=== PATIENT | female | born 1960 | race African-American/Black ===

== ENCOUNTER → 2020-04-23 | Outpatient (CLI) | payer OTHER ==
[~2020-04-23] MED LIST: CYCLOBENZAPRINE10 MG PO; ELIQUIS5 MG PO; EPIDIOLEX100 MG/1 M PO; LISINOPRIL40 MG PO; NORVASC 2.5 MG2.5 M1 PO; OXYCODONE HCL 55 MG PO; TRAMADOL-ACETA1 EACH PO
[2020-04-23 10:36] LABS: ABSOLUTE EOSINOPHILS 0.2 thou/uL (0.0-0.7); ABSOLUTE LYMPHOCYTES 1.8 thou/uL (0.8-5.3); ABSOLUTE MONOCYTES 0.3 thou/uL (0.0-1.2); ABSOLUTE NEUTROPHILS 1.3 thou/uL (1.6-8.1); BASOPHILS 1.2 %; EOSINOPHILS 4.3 %; HEMATOCRIT 40.3 % (37.0-47.0); HEMOGLOBIN 13.9 gm/dL (12.0-15.0); LYMPHOCYTES 50.3 %; MCH 31.9 pg (26.0-34.0); MCHC 34.4 g/dL (28.0-37.0); MCV 92.7 fL (80.0-100.0); MONOCYTES 8.4 %; MPV 8.6 fl. (7.2-11.1); NUCLEATED RBCS 0 /100WBC; PLATELET COUNT* 210 thou/uL (150-400); POLYS 35.8 %; RBC 4.35 mil/uL (4.20-5.00); RDW-CV 14.6 % (10.5-14.5); WBC 3.6 thou/uL (4.0-11.0)
[2020-04-23 10:41] LABS: APTT 26.6 Seconds (25.0-31.3); PROTIME 10.3 Seconds (9.20-11.50)
[2020-04-23 10:52] LABS: ALBUMIN 3.9 g/dL (3.4-5.0); CALCIUM 8.5 mg/dL (8.5-10.1); CREATININE 1.1 mg/dL (0.6-1.3); POTASSIUM 3.9 mmol/L (3.5-5.1); TOTAL BILIRUBIN 0.4 mg/dL (<0.1-1.0); TOTAL PROTEIN 7.3 g/dL (6.4-8.2)
[2020-04-23 11:46] LABS: ESR (SEDRATE) 2 mm/hr (0-30)
[2020-04-24 03:06] LABS: GLYCOHEMOGLOBIN (HGB A1C) 6.1 % (4.8-5.6)
== END ==
LOC: M.LAB 09:55
PROVIDERS: ATTEND Orthopaedic Surgery
DX: Z01.818 Encounter for other preprocedural examination (principal); M17.12 Unilateral primary osteoarthritis, left knee; Z11.59 Encounter for screening for other viral diseases

== ENCOUNTER 2020-05-02 05:23 | Observation (INO) | payer OTHER ==
--- NOTE | 2020-04-18 12:44 | NUR ---
PATIENT INTERVIEWED ON TELEPHONE. STATES UNABLE TO COME TO JOINT REPLACEMENT CLASS. JOINT AND SPINE SURGERY GUIDE PROVIDED TO PATIENT AND INSTRUCTIONS GIVEN TO WATCH THE JOINT VIDEO ONLINE. PATIENT STATES SHE WILL DO SO. PHONE NUMBER GIVEN IF ANY QUESTIONS.
[~2020-05-02] VITALS: Ht 157.5 cm; Wt 74.8 kg
--- NOTE | ~2020-05-02 | OP ---
[address] [address] OPERATIVE REPORT Name: ANETA KEITH Room: [address] Darius#: [id number] Admission: 05/02/20 Attend Phys: Juanjo Selby Discharge: Date of : 56 Report #: [id number] THIS REPORT FOR: //name// cc: CATY FRANK MD Physician not on staff ~ THIS REPORT FOR: //name// CC: Physician staff CATY Ruvalcaba DATE OF SERVICE: 05/02/2020 PREOPERATIVE DIAGNOSIS: Advanced degenerative joint disease, left knee. POSTOPERATIVE DIAGNOSIS: Advanced degenerative joint disease, left knee. PROCEDURE PERFORMED: Left total knee arthroplasty using the MicroPort Evolution system with the following components: 1. Size 5 CR femoral component. 2. A size 5 tibial baseplate. 3. A size 12 mm CS femoral component. 4. A size 32 all-poly patella. 5. Two bags of Biomet bone cement. SURGEON: Eulogio Mcneil DO. CUSTOMER PROGRAM MANAGER: ____. ANESTHESIA: General with a peripheral nerve block by Anesthesia. SPECIMENS: None. COMPLICATIONS: None. DISPOSITION: Stable to PACU. ANTIBIOTICS: 2 grams IV Ancef preop. TOURNIQUET: 56 minutes at 300 mmHg. INDICATIONS: The patient is a 59-year-old female, who has been following in the clinic regarding left knee pain. Exam and imaging consistent with DJD. She continued to have pain despite conservative measures. This bothers her on daily basis and interfering with her ADLs. Therefore, I recommend she undergo [place] [address] OPERATIVE REPORT Name: ANETA KEITH Room: [address]#: [id number] Admission: 05/02/20 Attend Phys: Juanjo Selby Discharge: Date of : 56 Report #: [id number] OPERATIVE FINDINGS: Upon operative inspection of the left knee, she is found to have abnormal-appearing joint effusion with hypertrophic synovitis. There was loss of cartilage, eburnation of bone, and osteophytes present. DESCRIPTION OF PROCEDURE: The patient was seen in the preoperative area, where a consent was obtained. The operative site was marked. The patient was brought back to the operative suite and placed supine and well padded on the operating table. She was given the benefit of general anesthesia. A well-padded tourniquet was applied to the proximal thigh. Left lower extremity was prepped and draped in normal sterile fashion. Surgery began with a timeout, indicating correct site. Procedure was verified, all the OR personnel were in agreement. Procedure began with inflation of the tourniquet to 300 mmHg after gravity exsanguination. A standard midline incision was made. Sharp dissection down to the level of the capsule. New blade created a standard medial parapatellar arthrotomy. Medial capsular sleeve was created. Patella was everted. The anterior horn of the medial and lateral menisci were incised. The fat pad was removed. The drill was used to localize the femoral canal. The intramedullary guide was used to place the distal femoral cutting block in 5 degrees of valgus with a 12 mm cut. This cut was made in standard fashion. Excess bone was removed. We used AP sizing guide measuring a 5 ____ in 3 degrees of external rotation referencing the posterior condyle. Four-in-1 cutting block was pinned into place, cuts were made in standard fashion, excess bone was removed. We then turned our attention to the tibia, where the extramedullary guide was aligned along the tibial crest into the ankle and second ray. It was pinned into place, measured 10 off the high lateral side. The cut was made in standard fashion, excess bone was removed. The knee was brought to extension. The block was inserted. Allowed full extension and symmetric gaps. We then used the Bovie to remove the remainder of the ACL, PCL, as well as the menisci. Tibia sized to a 5. This was pinned into place. The trial femoral component was inserted. The cut was made through the trial for the groove. We sequentially trialed up to a 12, which gave full flexion and extension with symmetric gaps and excellent stability. Patella was prepped using the Jose Manuel reamers. It measured at 32. Three peg holes were drilled. Patella tracked well. The tibia was prepped in standard fashion with a drill followed by a cruciform punch. All trial components were removed. The bony ends were thoroughly irrigated. The final components were impacted into place in standard fashion. Excess cement was removed. The knee was brought to full extension. After the appropriate time for the cement to harden, the knee was taken through range of motion. The 12 again gave us full range of motion with good stability. The final 12 mm poly was inserted. Tourniquet was deflated for a total time of 56 minutes. Adequate hemostasis was achieved with Bovie cautery and manual pressure. Orthopedic cocktail was injected around the operative site. Knee was brought to 90 degrees of flexion. Capsular tissue was closed with #1 Vicryl in [id number] fashion. This was reinforced with a running #1 Stratafix. Wound was again [facility] [address] [place] [address] OPERATIVE REPORT Name: ANETA KEITH Room: [address] Tito Mccoy#: [id number] Admission: 05/02/20 Attend Phys: Juanjo Selby Discharge: Date of : 56 Report #: [id number] thoroughly irrigated. Subcutaneous tissue was closed with a 2-0 Vicryl simple interrupted fashion, reinforced with a running 3-0 Stratafix and Dermabond skin glue. Sterile Mepilex was applied. The patient was awoken from anesthesia and transferred to PACU in stable condition. There were no ____ complications. Needle and sponge counts correct x 2. Dr. Mcneil was present for all critical aspects of the case. By: [id number] Mcneil DO /nt
[~2020-05-02 05:23] MED LIST changes: -ELIQUIS5 MG PO; -OXYCODONE HCL 55 MG PO
[2020-05-02 08:00] VITALS: BP 137/78
[2020-05-02 16:51] VITALS: BP 159/68
[2020-05-02 17:55] VITALS: BP 118/65
--- NOTE | 2020-05-02 18:20 | NUR ---
PATIENT ARRIVED TO UNIT FROM PACU AT 1245. ALERT AND ORIENTED X4. PATIENT ORIENTED TO ROOM AND UNIT. POLAR CARE IN PLACE. BULKY DRESSING NOTED TO LEFT KNEE. FLUIDS AND ANTIBIOTICS INFUSED ORDERED. ORAL OXY IR STARTED FOR PAIN MANAGEMENT PLAN. PATIENT UP TO BEDSIDE COMMODE TO VOID WITHOUT ISSUE. FALL PRECAUTIONS IN PLACE. CALL LIGHT WITHIN REACH. HOURLY ROUNDS COMPLETED. WILL CONTINUE PLAN OF CARE.
[2020-05-02 20:23] VITALS: BP 151/77
[2020-05-02 23:48] VITALS: BP 161/78
[2020-05-03 03:58] VITALS: BP 123/57
[2020-05-03 04:04] LABS: HEMATOCRIT 34.4 % (37.0-47.0); HEMOGLOBIN 11.7 gm/dL (12.0-15.0)
--- NOTE | 2020-05-03 05:35 | NUR ---
PATIENT ANXIOUS ABOUT LEFT CALF PAIN. I ENCOURAGED AMBULATION AND ICE PACKS. SHE DID GET SOME RELIEF AFTER WALKING. PAIN WELL MANAGED. OXY 5 MG GIVEN 2X DURING SHIFT. SHE WAS CONCERNED ABOUT BLOOD CLOTS. REASSURED HER SHE HAD PRECAUTIONS IN PLACE. SHE WAS ABLE TO SLEEP AFTER 3 AM. RECEIVED ALL FLUIDS AND MEDS SCHEDULED. WILL CONTINUE TO MONITOR.
[2020-05-03 08:00] VITALS: BP 106/59; BP 126/63
[2020-05-03 08:35] LABS: HEMATOCRIT 34.7 % (37.0-47.0); HEMOGLOBIN 11.7 gm/dL (12.0-15.0); MCH 31.4 pg (26.0-34.0); MCHC 33.7 g/dL (28.0-37.0); MCV 93.3 fL (80.0-100.0); MPV 8.9 fl. (7.2-11.1); RBC 3.72 mil/uL (4.20-5.00); RDW-CV 14.3 % (10.5-14.5); WBC 12.5 thou/uL (4.0-11.0)
[2020-05-03 08:38] LABS: CALCIUM 8.4 mg/dL (8.5-10.1); CREATININE 1.2 mg/dL (0.6-1.3); POTASSIUM 4.1 mmol/L (3.5-5.1)
--- NOTE | 2020-05-03 08:54 | NUR ---
cm completed initial assessment to discuss d/c planning. pt is a&ox4. pt lives alone in condo w/30 stairs. pt has 2 dogs that she will more than likely "have to put up" d/t needing walking. condo has a chair lift. pt will find out today if it has been fixed. pt would like to have aid w/hh. pt dtr is in town to help for the next 3 days. pt has no hx or preference for hh. pt had inpt stay at [facility] in [place]. pt not interesting in any snf. pt has w/c and walker and limited support, has her mother lives in town but is elderly and "weak." cm to cont to follow.
[2020-05-03] MEDS ORDERED: ELIQUIS5 MG PO (09:57)
--- NOTE | 2020-05-03 11:26 | NUR ---
MARTHA CALLED IN PRESCRIPTION FOR ELIQUIS, WRITTEN, TO HER [phone]. SPOKE WITH PHARMACIST,RAMONE. COAPY IS $21.
[2020-05-03 11:29] VITALS: BP 126/63
[2020-05-03 13:00] VITALS: BP 124/55
[2020-05-03 14:15] VITALS: BP 126/63
--- NOTE | 2020-05-03 14:31 | NUR ---
[facility] called to stated they will accept pt and bein care on wednesday. pt is in agreeance with this plan. pt dtr at bedside. pt notified her eliquis will cost $21.
[2020-05-03] MEDS ORDERED: OXYCODONE HCL 55 MG PO (14:32)
[2020-05-03 14:34] VITALS: BP 126/63
--- NOTE | 2020-05-03 15:45 | NUR ---
DISCHARGED TO HOME WITH DAUGHTER. IV DC'D AND PRESSURE APPLIED UNTIL BLEEDING CEASED. COTTON BALL AND TAPE APPLIED. PINK, WARM AND DRY. LEFT KNEE DRESSING WITHOUT ANY DRAINAGE ON IT NOTED. BILATERAL THIGH HIGH MELISA HOSE ON. POLAR PACK SENT HOME WITH PATIENT AND DAUGHTER INSTRUCTED HOW TO USE. PT C/O 8/10 PAIN PRIOR TO DISCHARGE AND OXY IR 5MG GIVEN AND CHARTED PRIOR TO LEAVING. ASSISTED OUT TO CAR WITH ALL BELONGINGS VIA W/C. PT AND DAUGHTER VERBALIZE UNDERSTANDING TO ALL DISCHARGE INSTRUCTIONS.
--- NOTE | 2020-05-03 16:43 | NUR ---
RECIEVED O.T. ORDERS. WILL DEFER TO P.T. AT THIS TIME. PLEASE ORDER FURTHER O.T. SERVICES IF NEEDED.
== END 2020-05-03 15:49 | disposition home or self-care (01) ==
LOC: M.PRE 05:23 → M.TBA 07:12 → M.ORTHSURG 07:12 → M.PRE 09:16 → M.ORTHSURG 12:48 → M.PRE 14:57 → M.ORTHSURG 05-03 15:49
PROVIDERS: Orthopaedic Surgery; ADMIT Internal Medicine; ATTEND Internal Medicine
DX: M17.12 Unilateral primary osteoarthritis, left knee (principal); I10 Essential (primary) hypertension; Z86.72 Personal history of thrombophlebitis; Z79.899 Other long term (current) drug therapy

== ENCOUNTER 2020-05-22 21:23 | Emergency (ER) | payer OTHER ==
[~2020-05-22] VITALS: Ht 157.5 cm; Wt 74.8 kg
[~2020-05-22 21:23] MED LIST changes: +ELIQUIS5 MG PO; +OXYCODONE HCL 55 MG PO
[2020-05-23] MEDS ORDERED: ROXICODONE5 M2 PO (00:43)
[2020-05-23 01:06] VITALS: BP 152/77
--- NOTE | 2020-05-23 12:40 | EKG ---
[place] [address] ELECTROCARDIOGRAM REPORT Name: ANETA KEITH Room: [facility]#: [id number] Admission: 05/22/20 Attend Phys: Discharge: 05/23/20 Date of : 56 Date of Service: 05/22/202149 Report #: [id number] THIS REPORT FOR: //name// [facility] ED Test Date: 2020-05-22 Test Time: 21:50:42 Pat Name: ANETA KEITH Department: Room: Gender: F [employer]: EUGENIA : 1960 Requested By: Marcia Orosco Order Number: [id number] Rox MD: Daryl Gutierrez Measurements Intervals [place] Rate: 76 P: 73 AR: 143 QRS: 24 QRSD: 87 T: 63 QT: 369 QTc: 415 Interpretive Statements Sinus rhythm with sinus arrhythmia No previous ECG available for comparison Electronically Signed On 05-23-2020 12:39:49 CDT by Daryl Gutierrez [email or web address] <ELECTRONICALLY SIGNED> By: Daryl Gutierrez MD, [facility] 05/23/20 1239 49 49 Daryl Gutierrez MD, FACC /EPI
== END 2020-05-23 01:07 | disposition home or self-care (01) ==
LOC: M.ERS 21:23
DX: M25.552 Pain in left hip (principal); M25.562 Pain in left knee; R51 Headache; I10 Essential (primary) hypertension; Z88.5 Allergy status to narcotic agent; W18.30XA Fall on same level, unspecified, initial encounter; Y93.89 Activity, other specified; Y92.488 Other paved roadways as the place of occurrence of the external cause; Y99.9 Unspecified external cause status